=== PATIENT | male | born 2005 | race Caucasian/White ===

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

== ENCOUNTER 2025-02-09 08:47 | Outpatient (AMB) | payer OTHER, SELFPAY ==
[2025-02-09 09:06] VITALS: BP 90/52; PULSE 56; TEMP 36.5; O2SAT 99; BMI 18.1
--- NOTE | 2025-02-09 09:06 | MHC.OFFWIV ---
Intake Vital Signs 02/09/25 09:06 Height 5 ft 6 in Weight 112 lb BMI 18.1 BP 90/52 L Blood Pressure Location Lt brachial Position Sitting Pulse 56 Pulse Source Pulse Oximeter Temp 97.7 F Temp Source Oral Pulse Oximetry (%) 99 Oxygen Delivery Method Room Air Intake Visit Reasons: EP something stuck in eye? Intake Note: pt presents with LT eye pain upon opening & blinking, began this morning, feels like something is stuck in there and unable to see anything Patient Tobacco Use Status: Current someday Tobacco user Allergies No Known Allergies Allergy (Verified 02/09/25 09:07) Do you need a note to return to daycare/school/sports/work: Yes (RTW note needed) HPI HPI Comments History of Present Illness Details History of Present Illness - The patient is a 19-year-old male presenting with a sensation of a foreign body in the left eye. - The sensation began this morning, with no prior incidents noted the previous day. - The patient works in [employer], with potential exposure to dust, but no specific incident was noted at work. - Multiple attempts to flush the eye at home were unsuccessful. - No additional symptoms such as fever, chills, or significant visual disturbances were reported, aside from slight cloudiness. Physical Exam General: Cooperative, healthy appearing, comfortable, no acute distress and well developed Eyes: Appearance normal, both eyes and all related structures. Sclera is white, conjunctiva is pink. No FB noted. PERRLA, EOMI on the left. Respiratory: Normal respiratory effort and able to speak in complete sentences. Clear to auscultation bilaterally Cardiovascular: Regular rate and rhythm. Normal S1 and S2 Patient was informed and verbally consented to the use of an ambient scribe for clinic note documentation during this visit. [facility] Family History (Updated 05/19/23 @ 15:33 by TODD Quesada) Paternal Grandfather Cancer Social History (Updated 05/19/23 @ 15:34 by TODD Quesada) Alcohol intake: current Alcohol intake frequency: does not drink Patient Tobacco Use Status: Current someday Tobacco user Cigarettes Per Day: 1 e-Cigarette/Vaping Use: Currently Using Review of Systems Const All systems reviewed & are unremarkable except as noted in HPI and below Physical Exam Vital Signs: Last Vital Signs Temp 97.7 F 02/09/25 09:06 Pulse 56 06/26/25 09:06 BP 90/52 L 02/09/25 09:06 Pulse Ox 99 02/09/25 09:06 Oxygen Delivery Method Room Air 02/09/25 09:06 BMI result Body Mass Index 18.1 Office Procedures Fluorescein eye exam Details: Eye flushed in the eye station. Fluorscein dye applied to the left eye. Uptake noted on the left lateral sclera. No corneal abrasion noted. No FB noted. Assessment & Plan Assessment & Plan (1) Left eye pain: Code(s): H57.12 - Ocular pain, left eye Plan Most likely FB vs abrasion plan - Conduct fluorescein staining to check for corneal abrasion. - Use eye wash to remove any potential foreign body. - erythromycin ointment to the eye for 4 days - follow up with eye doctor Orders: Orders AMB Fluorescein eye exam Today S05.01XA - Injury of conjunctiva and corneal abrasion without foreign body, right eye, initial encounter AMB Fluorescein eye exam Today S05.01XA - Injury of conjunctiva and corneal abrasion without foreign body, right eye, initial encounter Medications: New erythromycin 0.5 inches ophthalmic (eye) qid 3.5 grams 0RF 4 days Coding Level of Care Code Est Pt Level 3 (39775) Diagnoses Left eye pain H57.12
--- OUTSIDE RECORDS SUMMARY | 2025-02-09 09:21 | XMS_ITS | Clinical Summary ---
Author Organization [facility] Address [address] [place] [id number] Phone Care Team Providers Care Quality Assurance Group Leader Name Role Phone Matthew Blue MD Primary Care Provider [phone] Allergies Active Allergy Reactions Criticality Noted Date Comments Latex Rash Low Medications FLUoxetine 40 MG capsuleIndicatio ns:Depression, unspecified depression type TAKE 1 CAPSULE (40 MG TOTAL) BY MOUTH EVERY MORNING. 90 capsule 09/03/2024 Active Active Problems Problem Noted Date Diagnosed Date Substance use 04/07/2022 Depression, unspecified 04/01/2022 Overview (04/01/2022): WHO on 04/01/22 and follow up scheduled to bridge to [facility] and [facility] Assessment & Plan (06/23/2022 4:17 PM EST): Patient would like to stop alcohol use, reports low mood and feeling out of control of his life. Patient will benefit from short term bridge to other longer term supports. Patient is ready to address alcohol use and mood. Strengths include family support. PLAN: 1. Follow up with [facility] [place] 3 weeks 2. Patient goal is to learn coping skills to address depression and improve mood, and stop alcohol use. 3. Behavioral Recommendations: a. Continue to attend AA beginner meeting b. Ask for support when needed c. Continue to use writing to explore and express feelings Assessment & Plan (06/16/2022 5:27 PM EDT): Patient would like to stop alcohol use, reports low mood and feeling out of control of his life. Patient will benefit from short term bridge to other longer term supports. Patient is ready to address alcohol use and mood. Strengths include family support. PLAN: 1. Follow up with [facility] [place] 1 week 2. Patient goal is to learn coping skills to address depression and improve mood, and stop alcohol use. 3. Behavioral Recommendations: a. Continue to attend beginner meeting b. Ask for support and use crisis if needed c. Continue to use writing to explore and express feelings Assessment & Plan (05/15/2022 11:04 AM EDT): Patient would like to stop alcohol use, reports low mood and feeling out of control of his life. Patient will benefit from short term bridge to other longer term supports. Patient is ready to address alcohol use and mood. Strengths include family support. PLAN: 1. Follow up with [facility] [place] 3 weeks 2. Patient goal is to learn coping skills to address depression and improve mood, and stop alcohol use. 3. Behavioral Recommendations: a. Continue to attend beginner meeting b. Ask for support and use crisis if needed c. Continue to use writing to explore and express feelings Assessment & Plan (04/30/2022 4:20 PM EDT): Patient would like to stop alcohol use, reports low mood and feeling out of control of his life. Patient will benefit from short term bridge to other longer term supports. Patient is ready to address alcohol use and mood. Strengths include family support. PLAN: 1. Follow up with [facility] [place] 2 weeks 2. Patient goal is to learn coping skills to address depression and improve mood, and stop alcohol use. 3. Behavioral Recommendations: a. Continue to attend beginner meeting b. Ask for support and use crisis if needed c. Continue to use writing to explore and express feelings Assessment & Plan (04/16/2022 4:17 PM EDT): Patient would like to stop alcohol use, reports low mood and feeling out of control of his life. Patient will benefit from short term bridge to other longer term supports. Patient is ready to address alcohol use and mood. Strengths include family support. PLAN: 1. Follow up with [facility] [place] 2 weeks 2. Patient goal is to learn coping skills to address depression and improve mood, and stop alcohol use. 3. Behavioral Recommendations: a. Continue to attend beginner meeting b. Ask for support and use crisis if needed c. Continue to use writing to explore and express feelings Assessment & Plan (04/07/2022 11:48 AM EDT): Patient would like to stop alcohol use, reports low mood and feeling out of control of his life. Patient will benefit from short term bridge to other longer term supports. Patient is ready to address alcohol use and mood. Strengths include family support. PLAN: 1. Follow up with [facility] [place] 1 week 2. Patient goal is to learn coping skills to address depression and improve mood, and stop alcohol use. 3. Behavioral Recommendations: a. Continue to attend AA beginner meeting b. Ask for support and use crisis if needed c. Engage with [facility] Assessment & Plan (04/01/2022 2:19 PM EDT): Patient would like to stop alcohol use, reports low mood and feeling out of control of his life. Patient will benefit from short term bridge to other longer term supports. Patient is ready to address alcohol use and mood. Strengths include family support. PLAN: 1. Follow up with [facility] [place] 1 week 2. Patient goal is to learn coping skills to address depression and improve mood, and stop alcohol use. 3. Behavioral Recommendations: a. Attend AA beginner meeting b. Ask for support and use crisis if needed c. Referral to [facility] COVID-19 vaccination refused 11/20/2021 Refused influenza vaccine 07/26/2019 Attention deficit hyperactiv ity disorder (ADHD), combined type 06/16/2019 Acquired deformity of joint of finger, right Resolved Problems Problem Noted Date Diagnosed Date Resolved Date Dental caries 07/08/2011 07/13/2018 Encounters Date Type Department Care Team Description 12/05/2024 Telephone [facility] - [address] [id number] Matthew Blue MD Letter from Last 3 Months Immunizations Immunization Administration Dates Next Due DTaP / Hep B / IPV 07/03/2005,02/06/2005 DTaP 5 03/09/2009,11/11/2007,07/27/2006 HPV Vaccine 9 Valent 06/16/2019,09/23/2018 Hep A, ped/adol 01/16/2015,03/09/2014 Hep B, ped/adol 2004 Hib (HbOC) 07/03/2005,02/06/2005 Hib (PRP-T) 08/14/2006 IPV 03/09/2009,08/14/2006 Influenza, injectable, quadr ivalent, preservative free 06/26/2020 MMR 03/09/2009,02/24/2006 Meningococcal Conj (Menactra) MCV4P 12/20/2021,1 08/17/2015 Pneumococcal Conjugate 08/14/2006,07/03/2005, Tdap 11/11/2021,06/17/2016 Varicella 03/09/2009,02/24/2006 Family History Medical History Relation Name Comments No Known Problems Brother Raheem Allergic rhinitis Father Brionna No Known Problems Maternal Grandfather Blindness Maternal Grandmother Hyperlipidemia Maternal Grandmother Uterine cancer Maternal Grandmother Allergic rhinitis Mother Rufina Migraines Mother Rufina Cancer Paternal Grandfather bladder Relation Name Status Comments Brother Raheem Alive Brother: Alive and well Father Brionna Alive Father: Alive a nd well, Allergic rhinitis Maternal Grandfather Alive Materna l uncle: ADD/ADHD Maternal Grandmother Alive Materna l grandmother: Hyperlipidemia, blindness, 1 eye, Cancer, uterine Mother Rufina Alive Mother: Allergi c rhinitis, Migraines Other Family history of Strabismus/amblyopia Paternal Grandfather Paterna l grandfather: Cancer, bladder Paternal Grandmother Alive Paterna l aunt: Seizure disorder, Asthma Social History Tobacco Use Types Packs/Day Years Used Date Smoking Tobacco: Some Days Cigarettes Smokeless Tobacco: Never Tobacco Cessation:Ready to Q uit: Not Asked; Counseling Given: Not Answered Alcohol Use Standard Drinks/Week Comments No 0 (1 standard drink = 0.6 oz pur e alcohol) Hunger/Food Answer Date Recorded In the last 12 months, did y ou or your family ever eat less than you felt you should because there wasn't enough money for food? No 02/20/2023 Stable Housing Answer Date Recorded Are you worried that in the next 2 months you may not have stable housing? No 02/20/2023 Transportation Concerns Answer Date Rec orded In the last 12 months, have you or your family ever had to go without healthcare because you didn't have a way to get there? No 02/20/2023 Hazards in Home Answer Date Recorded Think about the place you li ve. Do you have problems with any of the following? Pests (mice or roaches), mold, no/not working smoke detectors, water leaks, no window guards. No 2022 Financing Utilities Answer Date Recorde d In the last 12 months, has t he electric, gas, oil, or water company threatened to shut off your services in your home? No 02/20/2023 Safety at Home Answer Date Recorded Are you or your family worried about feeling saf e in your home? No 02/20/2023 Outside Support Answer Date Recorded Do you feel that you need mo re support from other people or programs to help you care for yourself or your family? No 02/20/2023 Understanding Health Concerns Answer Da te Recorded Do you need help understandi ng your or your child's healthcare needs (diagnosis, medications, plan, etc.)? No 02/20/2023 Financing Health Concerns Answer Date R ecorded In the last 12 months, was t here a time when your child needed to see a doctor or get medications or supplies but could not because of cost? No 02/20/2023 Missing School or Work Answer Date Sheldon rded Did you or your child miss s chool or work because of a health problem that could have been avoided? No 02/20/2023 Sex and Gender Information Value Date Recorded Sex Assigned at Not on file Legal Sex Male 4:57 PM EDT Gender Identity Not on file Sexual Orientation Not on file Last Filed Vital Signs Vital Sign Reading Time Taken Comments Blood Pressure 94/57 01/21/2024 11:36 AM EDT Pulse 84 01/21/2024 11:36 AM EDT Temperature 36.7 C (98 F) 07/18/2024 1:56 PM EST Respiratory Rate - - Oxygen Saturation 98% 12/03/2018 10:28 AM EDT Inhaled Oxygen Concentration - - Weight 52 kg (114 lb 9.8 oz) 07/18/2024 1:56 PM EST Height 166.4 cm (5' 5.5 ) 11/20/2023 9:33 AM EDT Body Mass Index 18.78 11/20/2023 9:33 AM EDT Plan of Treatment Health Maintenance Due Date Last Done Comments Pneumococcal Vaccine (1 of 1 - PPSV23, PCV20, or PCV21) 2010 08/14/2006, 07/03/2005, 02/06/2005 Men B Vaccine (1 of 2 - Standard) 2020 Influenza Vaccines (#1) 2024 06/26/2020 COVID-19 Vaccine (1 - 2023-2 5 season) 2024 DTaP,Tdap,and Td Vaccines (8 - Td or Tdap) 11/12/2031 11/11/2021, 06/17/2016, 03/09/2009, Additional history exists Hepatitis B Vaccines Completed 07/03/2005, 02/06/2005, 2004 HIB Vaccines Completed 08/14/2006, 06/17, 02/06/2005 IPV Vaccines Completed 03/09/2009, 07/18, 07/03/2005, Additional history exists MMR Vaccines Completed 03/09/2009, 02/24/2006 Varicella Vaccines Completed 03/09/2009, 02/24/2006 Hepatitis A Vaccines Completed 01/16/2015, 03/09/20 14 HPV Vaccines Completed 06/16/2019, 09/23/2018 Meningococcal Vaccine Completed 12/20/2021, 016 Insurance [employer] [place] [phone] Care Teams Quality Assurance Group Leader Relationship Specialty Start Date End Date Matthew Blue MD [address] [place] [address] [place] [id number] PCP - General Pediatrics 04/17/19
== END 2025-02-09 10:18 | disposition home or self-care (01) ==
PROVIDERS: Visit Provider Physician Assistant Medical
DX: H57.12 Ocular pain, left eye (principal)

== ENCOUNTER → 2025-02-09 08:47 | Outpatient (BNVA) | payer OTHER, SELFPAY | PROVIDERS: Visit Provider Physician Assistant Medical | DX: Z13.89 Encounter for screening for other disorder (principal) ==